=== PATIENT | female | born 1995 | race Caucasian/White ===

== ENCOUNTER 2017-11-25 16:49 | Emergency (ER) | payer BC ==
[~2017-11-25] VITALS: Ht 170.2 cm; Wt 73.9 kg
[~2017-11-25 16:49] MED LIST: ZANTAC 150MG T150 MG PO
[2017-11-25 16:51] VITALS: TEMP 98.1
[2017-11-25] MEDS ORDERED: INDERAL40 MG PO (17:06)
[2017-11-25 17:21] LABS: BASO # 0.1 (0.0-0.2); BASO % 0.6 % (0.0-2.0); EOS # 0.3 (0.0-0.7); EOS % 2.5 % (0-4.0); GRAN # 6.2 (1.4-6.5); GRAN % 60.4 % (42.2-75.2); HEMATOCRIT 40.2 % (37.0-47.0); HEMOGLOBIN 13.2 g/dl (12.5-16.0); LYMPH # 2.7 (1.2-3.4); LYMPH % 26.6 % (20.0-51.0); MEAN CELL VOLUME 81 fl (80.0-100.0); MEAN CORPUSCULAR HEMOGLOBIN 27 pg (27.0-31.0); MEAN CORPUSCULAR HGB CONC 33 g/dl (33.0-37.0); MEAN PLATELET VOLUME 10.2 fl (7.4-10.4); MONO % 9.5 % (1.7-9.3); PLATELET COUNT 250 K/mm3 (130-400); RED BLOOD COUNT 4.96 M/mm3 (4.10-5.30); REDCELL DISTRIBUTION WIDTH-CV 13.8 % (11.5-14.5)
[2017-11-25] MEDS ORDERED: WELLBUTRIN XL300 M1 PO (17:25)
[2017-11-25] MEDS ORDERED: ZANTAC 150MG T150 MG PO (17:25)
[2017-11-25] MEDS ORDERED: WELLBUTRIN XL150 MG PO (17:26)
[2017-11-25] MEDS ORDERED: MASON NATURAL2000 IU PO (17:26)
[2017-11-25] MEDS ORDERED: MULTIPLE VITAMI1 TA5 PO (17:27)
[2017-11-25] MEDS ORDERED: NATURE'S BLE1000 MCG PO (17:27)
[2017-11-25 17:29] LABS: ALANINE AMINOTRANSFERASE 23 U/L (9-52); ALBUMIN 4.2 gm/dL (3.5-5.0); ALKALINE PHOSPHATASE 53 U/L (50-136); ANION GAP 13 mmol/L (7-16); AST,SGOT 17 U/L (15-37); BILIRUBIN,TOTAL 0.3 mg/dL (0.0-1.0); BLOOD UREA NITROGEN 11 mg/dL (7-17); CALCIUM 9.5 mg/dL (8.4-10.2); CARBON DIOXIDE 24 mmol/L (22-30); CHLORIDE 107 mmol/L (98-107); CREATININE, serum 0.98 mg/dL (0.52-1.25); GLUCOSE 100 mg/dL (74-106); POTASSIUM 3.9 mmol/L (3.4-5.0); SODIUM 144 mmol/L (137-145); TOTAL PROTEIN 7.2 gm/dL (6.4-8.2)
[2017-11-25 17:53] LABS: TROPONIN-I < 0.012 ng/mL (0.000-0.034)
[2017-11-25 18:00] LABS: THYROID STIMULATING HORMONE 0.856 uIU/mL (0.465-4.680)
[2017-11-25 19:13] VITALS: BP 1008/69; PULSE 75
== END 2017-11-25 19:10 | disposition home or self-care (01) ==
LOC: COL.ER 16:49
PROVIDERS: Emergency Medicine
DX: R00.2 Palpitations (principal); I10 Essential (primary) hypertension; F41.9 Anxiety disorder, unspecified; F32.9 Major depressive disorder, single episode, unspecified; Z90.89 Acquired absence of other organs; Z98.890 Other specified postprocedural states; Z88.4 Allergy status to anesthetic agent; Z88.2 Allergy status to sulfonamides
CPT/HCPCS: J2060; J7030